=== PATIENT | female | born 1995 | race Caucasian/White ===

== ENCOUNTER → 2021-10-03 02:32 | Outpatient (CLI) | payer OTHER, SELFPAY ==
[2021-10-03 14:06] LABS: Influenza Control Positive
[2021-10-03 21:06] LABS: SARS-CoV-2 RNA PCR Positive
== END ==
PROVIDERS: PCP Internal Medicine; Visit Provider Internal Medicine
DX: R68.89 Other general symptoms and signs (principal); U07.1 COVID-19
CPT/HCPCS: 87804; C9803; U0003; U0005

== ENCOUNTER 2024-10-11 12:35 | Outpatient (CLI) | payer BC, SELFPAY | END 2024-10-11 12:36 | disposition home or self-care (01) | PROVIDERS: PCP Internal Medicine; Visit Provider Obstetrics & Gynecology | DX: O20.0 Threatened abortion (principal) | CPT/HCPCS: 36415; 84702 ==

== ENCOUNTER 2025-04-14 15:37 | Outpatient (CLI) | payer BC, SELFPAY ==
--- OUTSIDE RECORDS SUMMARY | 2025-04-14 15:46 | XMS_ITS | Clinical Summary ---
Author Organization [address] Address [address] [place] [address] 5th [place] [address] Care Team Providers Care Messenger Office Name Role Phone Rocael Abdi MD Primary Care Provider [phone] Sacha Mackey MD Unavailable [phone] Allergies No known active allergies Medications multivit-min/digna fawad fumarate (MULTI VITAMIN ORAL) Take by mouth Active Active Problems Problem Noted Date Diagnosed Date Encounter for medical examination to establish c are 02/03/2024 Assessment & Plan (02/03/2024 11:46 AM CDT): A(n) initial well visit to establish care has been performed today. Tami Gotti is not up to date on screening tests. She is in need of hepatitis B and C screening and Cholesterol screening. She is not up to date on needed preventative vaccinations. We discussed healthy lifestyle habits, educational material has been given. Medications reviewed, changes documented as per the medical record and discussed with patient along with risks vs benefits. Return in 1 year Immunizations Immunization Administration Dates Next Due Tdap 02/14/2017 Surgical History Surgery Date Site/Laterality Comments WISDOM TOOTH EXTRACTION Medical History Medical History Date Comments Anxiety 2018 Family History Medical History Relation Name Comments Asthma Father Yoel Hyperlipidemia Father Yoel Breast cancer Father's Sister Sarahi COPD Maternal Grandfather Nik Diabetes Maternal Grandfather Nik Hypertension Maternal Grandfather Nik Stroke Maternal Grandfather Nik Clotting disorder Mother Carmina dvt pretty young Diabetes Mother Carmina Hyperlipidemia Mother Carmina Hypertension Mother Carmina Breast cancer Mother's Sister Jacquie Diabetes Paternal Grandfather Ray Prostate cancer Paternal Grandfather Ray Breast cancer Paternal Grandmother Violette Relation Name Status Comments Father Yoel Alive Father's Sister Sarahi Maternal Grandfather Nik Mother Carmina Alive Mother's Sister Jacquie Paternal Grandfather Ray Paternal Grandmother Violette Sister Alive Social History Tobacco Use Types Packs/Day Years Used Date Smoking Tobacco: Never Cigarettes Smokeless Tobacco: Never Tobacco Cessation:Counseling Given: Not Answered AUDIT-C Answer Date Recorded Q1: How often do you have a drink containing alc ohol? 2-4 times a month 02/03/2024 Q2: How many drinks containi ng alcohol do you have on a typical day when you are drinking? 1 or 2 02/03/2024 Q3: How often do you have si x or more drinks on one occasion? 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 Not on file Obstetrics History Last Filed Vital Signs Vital Sign Reading Time Taken Comments Blood Pressure 118/70 02/03/2024 11:27 AM CDT Pulse 62 02/03/2024 11:27 AM CDT Temperature 36.3 C (97.3 F) 02/03/2024 11:27 AM CDT Respiratory Rate 14 02/03/2024 11:27 AM CDT Oxygen Saturation 99% 02/03/2024 11:27 AM CDT Inhaled Oxygen Concentration - - Weight 63.5 kg (140 lb) 02/03/2024 11:27 AM CDT Height 167.6 cm (5' 6) 02/03/2024 11:27 AM CDT Body Mass Index 22.6 02/03/2024 11:27 AM CDT Plan of Treatment Health Maintenance Due Date Last Done Comments Cervical Cancer Screening 1997 Depression Screening 02/02/2025 02/03/2024 Regular Well Visit/Exam 18-64 02/02/2025 02/03/2024 DTaP/Tdap/Td Vaccine (2 - Td or Tdap) 02/14/2027 02/14/2017 Hepatitis B Screening Completed 02/03/2024 Hepatitis C Screening Completed 02/03/2024 Influenza Vaccine Completed 07/21/2024 HPV Vaccines Aged Out No longer eligi ble based on patient's age to complete this topic Pneumococcal vaccine <65 Aged Out No longer eligible based on patient's age to complete this topic Varicella Vaccines Discontinued Procedures Procedure Name Priority Date/Time Associated Diagnosis Comments HEPATITIS C ANTIBODY Routine 02/03/2024 11:52 AM CDT Need for hepatitis C screening test from Last 3 Months or Most Recently Relevant to Health Maintenance Results * Hepatitis C antibody Blood (02/03/2024 11:52 AM CDT) Hep C Ab Nonreactive Nonreactive Comment: Interpretive Data Nonreactive: Antibodies to HCV not detected. Does NOT exclude the possibility of recent exposure to HCV. Equivocal: Equivocal for HCV antibodies. Supplemental molecular testing will be automatically performed to determine infection status in accordance with current CDC screening recommendations. Reactive: Positive for HCV antibodies. This may represent current or past HCV infection. Supplemental molecular testing will be automatically performed to determine current infection status in accordance with current CDC screening recommendations. Interpretive data was last revised on 2019. Blood 02/03/2024 11:5 2 AM CDT 02/03/2024 8:55 PM CDT Rocael Abdi MD LAB MICROBIOLOGY - GENERAL ORDERABLES Final Result Performing Organization Address City/State/[facility] Phone Number [facility] [phone] Department [place] [address] from Last 3 Months or Most Recently Relevant to Health Maintenance Insurance [employer] ID Care Teams Messenger Office Relationship Specialty Start Date End Date Rocael Abdi MD [facility] [address] [place], [place] [id number] PCP - General Family Medicine 02/03/24 Sacha Mackey MD [address] [place] [address] [address] [place], [place] [id number] Referring Physician Obstetrics and Gynecology 02/03/24
--- OUTSIDE RECORDS SUMMARY | 2025-04-14 15:46 | XMS_ITS | Referral Summary ---
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 Gender Identity Not on file Sexual Orientation Not on file 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 Not on file Last Filed Vital Signs Vital Sign Reading [...] 02/03/2024 11:27 AM CDT Plan of Treatment Not on file Procedures Procedure Name Priority Date/Time Associated Diagnosis [...] GENERAL ORDERABLES Final Result Performing Organization Address City/State/ZIP [facility] Phone Number [place] [phone] Department [place] [address] from Last 3 Months or Most Recently Relevant to Health [place] [id number] [employer] Care Teams Experimental Display Builder Relationship Specialty Start Date End Date Rocael Abdi MD [address] [facility] [address] [place] [address] PCP - General Family Medicine 02/03/24 Sacha Mackey MD [address] [place] [address] Referring Physician Obstetrics and Gynecology 02/03/24
[2025-04-14 16:11] VITALS: BP 115/74; PULSE 112
[2025-04-14 16:15] VITALS: BP 111/70; PULSE 99
[2025-04-14 16:30] VITALS: BP 111/69; PULSE 99
[2025-04-14 16:52] VITALS: BP 115/74; PULSE 99
[2025-04-14 16:59] LABS: OBXCEM ROM Plus Negative (Negative)
== END 2025-04-14 16:40 ==
LOC: ANHOBOP 15:42 → ANHOBPP 15:44
PROVIDERS: Visit Provider Obstetrics & Gynecology
DX: O42.90 Premature rupture of membranes, unspecified as to length of time between rupture and onset of labor, unspecified weeks of gestation (principal); Z3A.00 Weeks of gestation of pregnancy not specified
CPT/HCPCS: 59025; 84112; 99199

== ENCOUNTER 2025-05-24 11:23 | Inpatient (IN) | payer BC, SELFPAY ==
[2025-05-24] VITALS (74 sets, daily range): BP systolic 85–168; BP diastolic 25–102; PULSE 73–200; TEMP 36.4–36.9; O2SAT 98–100; BMI 26.6
--- OUTSIDE RECORDS SUMMARY | 2025-05-24 12:10 | XMS_ITS | Clinical Summary ---
Author Organization [address] Address [address] [place] [address] 5th [place] [address] Care Team Providers Care Engineering Technical Writer Name Role Phone Rocael Abdi MD Primary Care Provider [phone] Sacha Mackey MD Unavailable [phone] Allergies No known active allergies Medications multivit-min/digna [...] Name Comments Asthma Father Yoel Hyperlipidemia Father Yole Breast cancer Father's Sister Sarahi COPD Maternal Grandfather Nik Diabetes Maternal Grandfather Nik Hypertension Maternal Grandfather Nik Stroke Maternal Grandfather Nik Clotting disorder Mother Carimna dvt pretty young Diabetes Mother Carmina Hyperlipidemia [...] on file 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 Gender Identity Not on file Sexual Orientation [...] Last Done Comments Cervical Cancer Screening 1997 HPV Vaccines (1 - 3-dose SCD M series) 2024 Depression Screening 02/02/2025 02/03/2024 Regular Well Visit/Exam 18-64 02/02/2025 02/03/2024 Influenza Vaccine (#1) 2025 07/21/2024 DTaP/Tdap/Td Vaccine (2 - Td or Tdap) 02/14/2027 02/14/2017 Hepatitis B Screening Completed 02/03/2024 Hepatitis C Screening Completed 02/03/2024 Pneumococcal vaccine <65 Aged Out No longer [...] GENERAL ORDERABLES Final Result Performing Organization Address City/State/[facility] Phone Number [facility] [phone] Department [place] [address] from Last 3 Months or Most Recently Relevant to Health Maintenance Insurance [employer] [place] Care Teams Engineering Technical Writer Relationship Specialty Start Date End Date Rocael Abdi MD [address] [facility] [address] [place] [address] PCP - General Family Medicine 02/03/24 Sacha Mackey MD [address] [facility] [address] [place] [address] Referring Physician Obstetrics and Gynecology 02/03/24
[2025-05-24 12:44] LABS: Hematocrit 34.5 % (37.0-47.0); Hemoglobin 11.1 g/dL (12.0-15.0); Immature Granulocyte Percent A 1.5 % (0-0.5); Lymphocytes Absolute Auto 1.69 K/mm3 (0.9-3.2); Mean Corpuscular HGB Conc 32.2 g/dl (32-36); Mean Corpuscular Hemoglobin 29.1 pg (26-34); Mean Corpuscular Volume 90.3 fl (80-100); Nucleated Red Blood Cells Absolute Auto 0.000 K/mm3 (0.0-0.012); Nucleated Red Blood Cells Perc 0.0 % (0.0-0.2); Platelet Count Result 208 k/mm3 (150-375); Red Blood Count 3.82 M/mm3 (4.2-5.4); White Blood Count 8.9 K/mm3 (4.5-10.0)
[2025-05-24 13:44] LABS: Syphilis IgG/IgM Antibody Non-Reactive (Nonreactive)
--- NOTE | 2025-05-24 15:57 | LDADM ---
This patient, Tami Gotti, was admitted to Labor/Delivery/Recovery 106 on 05/24/25 at 11:23. Plans for labor, pain management and were discussed with patient. Patient/family oriented to hospital policies and general routines including ID bracelet, bed and alarms, visiting hours, pain management, procedures, bathroom and other care routines, personal items, smoking policy, room service/diet and guest tray routines, infant security routines, and visiting hours. Patient/Family are encouraged to report perceived risks to care and to ask questions if they do not understand what they are told or what they should do. See OBIX for further documentation.
[2025-05-24] MEDS: LACTATED RINGERS 1,000 ML 125 ML IV CONT ×2 (16:21→18:45)
[2025-05-24] MEDS: OXYTOCIN 30 UNITS/NS 500 ML 30 UNITS/500 ML BAG IV CONT (16:21)
--- NOTE | 2025-05-24 17:27 | P.HP_ITS ---
H&P: HPI History of Present Illness Date/Time: 05/24/25 17:27 Chief Complaint: Leakage of fluid Narrative: 29 y/o G1 at 37 2/7 weeks by LMP c/w US. uncomplicated. GBS neg. Had SROM this morning at 0600, confirmed by [facility] here on L&D. Starting to feel some contractions. Have started augmenting labor with oxytocin. Review of Systems Review of Systems: All systems reviewed & are unremarkable except as noted in HPI and below PMFSH Family History Family History Mother Diabetes mellitus Father Patient's father is in good health Sibling Patient's sister is in good health Social History Social History Smoking status: Never smoker Second hand tobacco smoke exposure: No Alcohol intake: current Drinks per week: 5 Alcohol use details: socially Substance use: never Do You Feel Safe in your Home?: Yes Lack of Transportation: No Lack of Food: Never True Current Housing: I Have Housing Concerned About Future Housing: No Difficulty Paying Gas/Electric Bills: No Difficulty Paying for Meds: No Currently Unemployed: No Education: Master's Degree or Higher Difficulty w/ Childcare or Family Care: No Spiritual care concerns: No Meds Home Medications and Allergies Home Medications ?Medication ?Instructions ?Recorded ?Confirmed ?Type docosahexaenoic acid 200 mg mg PO 04/21/25 05/23/25 Hi story capsule ( DHA) Allergies Allergy/AdvReac Type Severity Reaction Status Date / Time No Known Allergies Allergy Verified 05/24/25 16:01 Vital Signs Vital Signs - 24 hr 05/24/25 12:00 05/24/25 12:15 05/24/25 12:31 Temperature Pulse Rate 107 H 100 93 Blood Pressure 107/73 118/77 123/65 Oxygen Delivery 05/24/25 12:45 05/24/25 13:00 05/24/25 13:10 Temperature 98.4 F Pulse Rate 106 H 104 H Blood Pressure 107/76 119/80 Oxygen Delivery 05/24/25 13:15 05/24/25 13:30 05/24/25 13:45 Temperature Pulse Rate 92 95 84 Blood Pressure 107/55 L 110/60 125/83 Oxygen Delivery 05/24/25 14:00 05/24/25 15:25 05/24/25 15:28 Temperature Pulse Rate 84 112 H 117 H Blood Pressure 122/72 85/69 L 90/25 L Oxygen Delivery 05/24/25 15:29 05/24/25 15:56 05/24/25 16:02 Temperature Pulse Rate 91 118 H Blood Pressure 109/67 136/95 H Oxygen Delivery Room Air 05/24/25 16:47 Temperature Pulse Rate 98 Blood Pressure 121/79 Oxygen Delivery Exam Const: Other: Well-developed, well-nourished female in no acute distress. Neck: Other: Neck: Trachea midline, no thyromegaly or masses. Resp: Other: Lungs: Normal respiratory effort. Clear to auscultation bilaterally. Cardio: Other: Heart: Regular rate and rhythm with normal S1-S2. GI: Other: ABD: Soft, nontender, nondistended, gravid, vertex. No guarding or rebound tenderness. No hepatosplenomegaly. NST reactive. TOCO: contractions every 4-6 min. : Other: Cervix: 2/80/-2 per RN exam. Back/Spine/Pelvis: Other: Back: No CVA tenderness. Skin: Other: Skin: No lesions, rashes or ulcers noted. Extrem: Other: Extremities: nontender with no edema Psych: Other: Mental status grossly normal, with normal mood and affect. H&P: Results Labs Labs: Short CBC 05/24/25 Range/Units 12:24 WBC 8.9 (4.5-10.0) K/mm3 Hgb 11.1 L (12.0-15.0) g/dL Hct 34.5 L (37.0-47.0) % Plt Count 208 (150-375) k/mm3 Assessment and Plan Assessment and plan (1) SROM (spontaneous rupture of membranes): Status: Acute Assessment and Plan: A: IUP at 37 2/7 weeks with SROM. P: Augmenting labor with oxytocin. Anticipate . (2) Term : Code(s): Z34.90 - Encounter for supervision of normal , unspecified, unspecified trimester Status: Acute
--- NOTE | 2025-05-24 19:38 | P.PNAN_ITS ---
Anes - Initial Pre Proc Eval Procedure: labor epidural Date/Time: 05/24/25 19:38 Surgeon: Sacha Mackey MD Pre Op Diagnosis: labor pain Pre Op Diagnosis: leaking Patient Data Age: 29 Gender: F Height: 1.68 m Weight: 75 kg Last Vital Signs Temp 36.8 C 05/24/25 18:00 Pulse 80 05/24/25 19:35 BP 119/69 05/24/25 19:35 Pulse Ox 99 05/24/25 19:28 O2 Del Method Room Air 05/24/25 15:56 Allergies Allergy/AdvReac Type Severity Reaction Status Date / Time No Known Allergies Allergy Verified 05/24/25 16:01 Home Medications ?Medication ?Instructions ?Recorded ?Confirmed ?Type docosahexaenoic acid 200 mg mg PO 04/21/25 05/23/25 Hi story capsule ( DHA) Laboratory Tests 05/24/25 12:24 WBC 8.9 K/mm3 (4.5-10.0) RBC 3.82 L M/mm3 (4.2-5.4) Hgb 11.1 L g/dL (12.0-15.0) Hct 34.5 L % (37.0-47.0) MCV 90.3 fl (80-100) MCH 29.1 pg (26-34) MCHC 32.2 g/dl (32-36) RDW 12.6 % (11.5-14.5) Plt Count 208 k/mm3 (150-375) MPV 10.8 H fl (7.4-10.4) Immature Gran % (Auto) 1.5 H % (0-0.5) Neut % (Auto) 74.0 H % (45.5-73.1) Lymph % (Auto) 18.9 % (18.3-44.2) [place] % (Auto) 5.2 % (2.6-8.5) Eos % (Auto) 0.3 % (0-4.4) Baso % (Auto) 0.1 L % (0.2-1.2) Lymph # (Auto) 1.69 K/mm3 (0.9-3.2) [place] # (Auto) 0.5 K/mm3 (0.1-0.6) Eos # (Auto) 0.0 K/mm3 (0-0.3) Baso # (Auto) 0.0 K/mm3 (0.0-0.1) Abs Immat Gran (auto) 0.13 H K/mm3 (0.00-0.031) Absolute Neuts (auto) 6.6 K/mm3 (1.3-6.7) Absolute Nucleated RBC 0.000 K/mm3 (0.0-0.012) Nucleated RBC % 0.0 % (0.0-0.2) Syphilis IgG/IgM Ab Non-reactive (Nonreactive) Blood Type O Positive Antibody Screen Negative Patient hx anesthesia problems: none Family hx anesthesia problems: none Results Review: All pre-operative results and documents have been reviewed as part of the pre- operative evaluation. [facility] Family History Family History Mother Diabetes mellitus Father Patient's father is in good health Sibling Patient's sister is in good health Social History Social History Smoking status: Never smoker Second hand tobacco smoke exposure: No Alcohol intake: current Drinks per week: 5 Alcohol use details: socially Substance use: never Do You Feel Safe in your Home?: Yes Lack of Transportation: No Lack of Food: Never True Current Housing: I Have Housing Concerned About Future Housing: No Difficulty Paying Gas/Electric Bills: No Difficulty Paying for Meds: No Currently Unemployed: No Education: Master's Degree or Higher Difficulty w/ Childcare or Family Care: No Spiritual care concerns: No Anes - Eval Final PreProcedure Day of Procedure 05/24/25 19:38 Heart: regular rate and rhythm Lungs: clear to auscultation and normal air movement Airway: Mallampati scale class 1 Neurological: alert and oriented ASA classification: II Anesthetic plan: proceed Anesthesia type and monitoring: regional epidural and standard monitoring Results Review: All pre-operative results and documents have been reviewed as part of the pre- operative evaluation. Informed Consent: The patient's anesthetic plan and its attendant risks and benefits were discussed with the patient/family/POA. Questions were solicited and answers provided to the satisfaction of the patient/family/POA.
[2025-05-24] MEDS: PHENYLEPHRINE 1,000 MCG/10 ML SYRINGE 100 MCG IV PUSH (23:43)
[2025-05-25] VITALS (58 sets, daily range): BP systolic 101–141; BP diastolic 43–103; PULSE 62–106; RESP 16–18; TEMP 36.7–37.2; O2SAT 94–100
[2025-05-25] MEDS: AMPICILLIN SODIUM 2 GM in SODIUM CHLORIDE 0.9% IV 100 ML 200 ML IVPB (01:53)
[2025-05-25] MEDS: OXYTOCIN 30 UNITS/NS 500 ML 30 UNITS/500 ML BAG 999 UNITS IV CONT (03:30)
--- NOTE | 2025-05-25 03:56 | PM.OBPRVD ---
OB - Vaginal Delivery Note Procedure Delivery date: 05/25/25 Induction method: None Delivery augmentation: Pitocin Delivery monitor: External FHT, External Uterine and Internal Uterine Route of delivery: Episiotomy description: None Laceration Description: Perineal - 2nd Degree Delivery repair: vicryl (3-0) Specimen: Yes (cord blood) Quantitative Blood Loss (ml): 180 Anesthesia type: Local (1% lidocaine) Disposition: PACU Complications: None Narrative: 29 y/o G1 at 37 3/7 weeks gestation who presented to the hospital after a gush of fluid. SROM was confirmed and she was admitted for labor. Labor was subsequently augmented with oxytocin. She received an epidural for pain control. She was given ampicillin IV 18 hours after SROM. Her labor progressed and her cervix dilated completely. She pushed with good effort and delivered the infant's head to the perineum, followed by the body. The nose and mouth were bulb suctioned. After a delay, the cord was clamped and cut. The infant was handed off the field. Cord blood was collected. The placenta delivered spontaneously and was grossly normal in appearance. The usual 3 vessel cord was noted. A second degree midline perineal laceration was sustained. This was infiltrated with 6 mL 1% lidocaine and reapproximated using 3 0 Vicryl in the usual layered fashion. Excellent hemostasis resulted as did excellent reapproximation of the normal anatomy. Needle and instrument counts were correct. The patient was taken to recovery room in stable condition. The infant went to the nursery in stable condition. I was present and scrubbed for the entire delivery. [place] Baby Date of : 05/25/25 Time of : 03:57 Gestational Age by Date: 37 Infant gender: Male presentation: vertex position: Left Occiput Anterior Placenta delivery description: Spontaneous and Normal Configuration Cord Vessel Description: 3 Vessels and Delayed Cord Clamping score one minute: 8 score five minutes: 9
--- NOTE | 2025-05-25 03:59 | PM.OBDSVD ---
DS: Admitting Diagnosis Discharge Date 05/26/25 Admitting Diagnosis IUP at 37 2/7 weeks SROM DS: Discharge Diagnosis Discharge Diagnosis (1) (normal spontaneous vaginal delivery): Code(s): O80 - Encounter for full-term uncomplicated delivery Status: Acute OB - DS: Summary OB Procedures : NST OB Procedures Intrapartum: Spontaneous Vag Delivery OB Procedures: : None Peripartum Data Laceration Description: Perineal - 2nd Degree Episiotomy description: None Time Spent with Patient Time attestation: Total time spent providing and/or coordinating discharge services: DS: Data Data Completed and Pending Labs on day of discharge: Labs from last 24 hours 05/24/25 12:24 WBC 8.9 RBC 3.82 L Hgb 11.1 L Hct 34.5 L MCV 90.3 MCH 29.1 MCHC 32.2 RDW 12.6 Plt Count 208 MPV 10.8 H Immature Gran % (Auto) 1.5 H Neut % (Auto) 74.0 H Lymph % (Auto) 18.9 [place] % (Auto) 5.2 Eos % (Auto) 0.3 Baso % (Auto) 0.1 L Lymph # (Auto) 1.69 [place] # (Auto) 0.5 Eos # (Auto) 0.0 Baso # (Auto) 0.0 Abs Immat Gran (auto) 0.13 H Absolute Neuts (auto) 6.6 Absolute Nucleated RBC 0.000 Nucleated RBC % 0.0 Syphilis IgG/IgM Ab Non-reactive Blood Type O Positive Antibody Screen Negative Discharge Plan Discharge Attending physician on discharge: Sacha Mackey Consulting providers: Jenny Adkins; [place] Discharging Clinician: Sacha Mackey Patient Disposition: Home Activity: pelvic rest Diet: regular Discharge Instructions: Call or return if temperature above 100.4? F, increased abdominal pain, increased vaginal bleeding or any new problems. Education: Mom and Baby Guide Given to: Mother Follow-Up: Call your delivering provider's office for an appointment to be seen in: call your OB to schedule your follow up appointmeny Mom and baby should come to the [facility] for the follow-up appointment. Appointment Date/Time: May 30, 2025 at 11:00 am What to expect at your follow-up visit: Blood Pressure Check Physical Assessment Call [phone] if you are unable to keep your appointment time. BREAST CARE: * Wear a snug supportive bra. * For engorgement discomfort: Breast Feeding: * Apply warm moist washcloths * Express milk as needed to relieve engorgement * Wear loose clothing Bottle Feeding: * May apply ice packs * For sore nipples: * Identify correct latch-on * Apply warm moist washcloths before and after nursing * Air dry nipples after nursing * May apply Lansinoh cream to nipples PERINEAL CARE: * Until bleeding stops, use your annetta bottle after urinating * Change your pad frequently throughout the day * You may take sitz baths several times a day (fill your bathtub with warm water and soak for 20 minutes.) Do NOT bathe in the water * No tub baths until seen by your physician - You may shower ACTIVITY: * Rest as much as possible. * Do not exercise or lift anything heavier than your baby (such as laundry or other children.) * Avoid stairs or driving as much as possible. * Do not put anything into the vagina. No douching, tampons, or sexual activity until seen by physician. NOTIFY PHYSICIAN IF YOU HAVE ANY QUESTIONS OR IF ANY OF THE FOLLOWING SYMPTOMS OCCUR: * If your episiotomy or incision becomes red, swollen, or more painful than what you have experienced in the hospital. * If your vaginal bleeding becomes foul smelling. * If your vaginal bleeding becomes more heavy than a period or if your bleeding changes from pink to bright red. However, you may pass an occasional walnut-sized clot once or twice for the first week . * If you experience a sharp, shooting pain in you calves. * If you discover a hard, reddened area on your breast or if you experience flu-like symptoms. DIET: * Eat regular, well-balanced meals. * Drink plenty of fluids daily. If , drink to thirst. Patient Language: Honduran Stand Alone Forms: General Discharge Information Follow-up/Referrals: Sacha Mackey MD [Physician, [employer]] - 6 Weeks Discharge Medications: New ibuprofen 600 mg tablet 600 mg PO Q6H PRN (Reason: cramps) Qty: 30 0RF Continued DHA 200 mg capsule PO Date of admission: 05/24/25 11:23 Primary Care Provider: PHYSICIAN,ZOO DIRECTOR Admitting Provider: Sacha Mackey Attending physician on admission: Sacha Mackey Condition: Stable
[2025-05-25] MEDS: OXYTOCIN 30 UNITS/NS 500 ML 30 UNITS/500 ML BAG 125 UNITS IV CONT (04:00)
[2025-05-25] MEDS: IBUPROFEN 600 MG TABLET PO (08:00)
[2025-05-25] MEDS: DOCUSATE SODIUM 100 MG CAPSULE PO (08:00)
[2025-05-26 04:48] LABS: Hematocrit 32.6 % (37.0-47.0); Hemoglobin 10.2 g/dL (12.0-15.0)
[2025-05-26] MEDS: DOCUSATE SODIUM 100 MG CAPSULE PO (08:00)
[2025-05-26] MEDS: MULTIVIT/MIN/PREN/FOL AC/IRON TABLET 1 TAB PO (08:00)
[2025-05-26 08:30] VITALS: BP 107/64; PULSE 73; RESP 16; TEMP 36.6; O2SAT 96
--- NOTE | 2025-05-26 13:32 | WPDANLDPN2 ---
Anes-Prog Note L&D Date/Time: 05/26/25 13:32 Neuro status: Neuro function grossly intact. Cardiovascular status: normal Respiratory status: normal Airway patency: baseline Mental status: baseline Post-Op hydration status: normal Vital Signs: Last Vital Signs Temp 36.6 C 05/26/25 08:30 Pulse 73 05/26/25 08:30 Resp 16 05/26/25 08:30 BP 107/64 05/26/25 08:30 Pulse Ox 96 05/26/25 08:30 O2 Del Method Room Air 05/25/25 20:38 Pain score (VAS): 0 Post-procedural complaints: none Patient feedback: Patient satisfied with anesthetic care.
--- NOTE | 2025-05-26 14:40 | PC.NURSE ---
1210. Met with patient to assess and discuss needs related to feeding. Mother states it is her intention to [exclusively breastfeed]. Encouraged mother to breastfeed 8-12 times in 24 hours (approximately every 2-3 hours), watching for early feeding cues. Mom states she has some tenderness in both nipples with feeding mostly during the initial latch on. Observed mom latching infant to the left breast in cross cradle position. Infant was able to latch, but the latch looked shallow. Reviewed how to obtain a deeper latch with proper positioning and tilting the head back and chin forward into the breast. Mom attempted to re-latch infant using this technique and was able to obtain an optimal latch with no pain. Mom reports she has a spectra pump at home and we were able to measure her nipples to give her the correct size she will need for her flanges. Reviewed with mom if infant is sleepy, unwrap and place baby skin to skin. Discussed signs that infant is effectively , i.e. sufficient voids and stools, jaundice within normal limits, <10% weight loss from . Mother educated on milk production, supply and demand, and expectations for in the immediate period. Encouraged feeding on demand and feeding durations of 15 minutes or greater. Discussed breast/nipple care with good hand hygiene, signs of a correct latch, listening for swallows and documenting feedings on the feeding sheet. Mother instructed to call for assistance if infant will not feed every 3 hours, if there is discomfort with , or if mother has any other questions or concerns. resources provided including the Mom and Baby Guide and name/number on communication board. Mother verbalized understanding. Updated patient?s primary RN with education provided.?
--- NOTE | 2025-05-26 17:07 | P.PNOB_ITS ---
OB - PN: Subj Subjective Date/time seen: 05/26/25 17:07 Narrative: Pain OK. Would like to go home. Would like circumcision for son. OB - PN: Obj Data Labs 05/26/25 04:11 Labs: Laboratory Results - last 24 hr 05/26/25 04:11 Hgb 10.2 L Hct 32.6 L OB - PN A/P Plan day: 1 Comments: A: PPD#1, doing well. P: Home to f/u 6 weeks. Reviewed circ. Exam 2 Psych: Other: AVSS ABD soft, nontender, fundus firm EXT nontender
[2025-05-30 11:18] VITALS: BP 117/83; PULSE 83; RESP 18; TEMP 37; O2SAT 100
== END 2025-05-26 19:30 | disposition home or self-care (01) | DRG 807 ==
LOC: ANHLDR 05-25 04:00 → ANHOB2 05-25 06:51
PROVIDERS: Admitting Provider Obstetrics & Gynecology; Visit Provider Obstetrics & Gynecology
DX: O70.1 Second degree perineal laceration during delivery (principal); Z37.0 Single live birth; Z3A.37 37 weeks gestation of pregnancy
CPT/HCPCS: 36415; 85014; 85018; 85025; 86593; 86850; 86900; 86901; A9270; J0290; J2371; J2590; J2795; J7120